=== PATIENT | male | born 1985 | race Caucasian/White ===

== ENCOUNTER 2017-12-03 13:17 | Emergency (ER) | payer OTHER ==
[2017-12-03 13:25] VITALS: BP 141/91
[2017-12-03] MEDS ORDERED: LORazepam 0.5 MG TABLET PO STA (13:37)
[2017-12-03 13:41] LABS: BASOPHILS % (AUTO) 0.8 %; EOSINOPHILS # (AUTO) 0.1 10^3/uL (0.0-0.7); EOSINOPHILS % (AUTO) 2.7 %; HGB - HEMOGLOBIN 15.8 g/dL (14.0-18.0); LYMPHOCYTES # (AUTO) 1.3 10^3/uL (1.5-3.5); LYMPHOCYTES % (AUTO) 24.5 %; MEAN CORPUSCULAR HEMOGLOBIN 30.6 pg (27.0-31.0); MEAN CORPUSCULAR VOLUME 87.3 fL (80.0-94.0); MEAN PLATELET VOLUME 7.3 fL (7.4-11.4); MONOCYTES # (AUTO) 0.5 10^3/uL (0.0-1.0); MONOCYTES % (AUTO) 9.8 %; NEUTROPHILS # (AUTO) 3.4 10^3/uL (1.5-6.6); NEUTROPHILS % (AUTO) 62.2 %; PLT - PLATELET COUNT 208 10^3/uL (130-450); RED BLOOD COUNT 5.16 10^6/uL (4.70-6.10); RED CELL DISTRIBUTION WIDTH 12.7 % (12.0-15.0); WHITE BLOOD COUNT 5.5 x10^3/uL (4.8-10.8)
--- NOTE | 2017-12-03 13:41 | ED Physician Documentation ---
PD HPI MHE - Stated complaint Stated Complaint: MHE - Chief complaint Chief Complaint: MHE - History obtained from History obtained from: Patient, Family - History of Present Illness Primary symptom: Suicidal ideation, Anxiety Pain level max: 0 Pain level now: 0 Contributing factors: Work (stress) Recently seen: Not recently seen - Additional information Additional information: Patient is a 32-year-old male who states he has been diagnosed with "cognitive disassociative disorder". Was seen a psychiatrist, but is not currently seen 1. Does have a PCM through the [facility]. Is currently on Prozac and had his dose increased approximately 2 months ago. Over the past several hours has been feeling increasingly anxious and like he is having a panic attack. States he has been having suicidal thoughts, but does not currently have a plan. Has never attempted suicide in the past but has self-harmed by cutting his wrists. Review of Systems Ten Systems: 10 systems reviewed and negative Constitutional: denies: Fever, Chills Ears: denies: Ear pain Nose: denies: Rhinorrhea / runny nose, Congestion Throat: denies: Sore throat Cardiac: denies: Chest pain / pressure, Palpitations Respiratory: denies: Dyspnea, Cough, Wheezing GI: denies: Nausea, Vomiting, Diarrhea Skin: denies: Rash Musculoskeletal: denies: Neck pain, Back pain Psychiatric: denies: Homicidal, Hallucinations, Insomnia PD PAST MEDICAL HISTORY - Past Medical History Past Medical History: Yes Psych: Depression, Anxiety - Past Surgical History Past Surgical History: No - Present Medications Home Medications: Ambulatory Orders Medication Instructions Recorded Confirmed FLUoxetine [PROzac] 30 mg ORAL DAILY 12/10/15 12/10/15 LORazepam [Ativan] 0.5 mg PO Q6H PRN #7 tablet 12/03/17 - Allergies Allergies/Adverse Reactions: Allergies Allergy/AdvReac Type Severity Reaction Status Date / Time No Known Drug Allergies Allergy Verified 12/03/17 13:26 - Living Situation Living Situation: reports: With family Living Arrangement: reports: At home - Social History Does the pt smoke?: No Smoking Status: Never smoker Does the pt drink ETOH?: Yes Does the pt have substance abuse?: No - Immunizations Immunizations are current?: Yes PD ED PE NORMAL - Vitals Vital signs reviewed: Yes - General General: Alert and oriented X 3 - HEENT HEENT: Moist mucous membranes - Neck Neck: Supple, no meningeal sign - Cardiac Cardiac: RRR - Respiratory Respiratory: No respiratory distress, Clear bilaterally - Abdomen Abdomen: Soft, Non tender, Non distended - Back Back: No spinal TTP - Derm Derm: Warm and dry, No rash - Extremities Extremities: No edema - Neuro Neuro: Alert and oriented X 3 - Psych Psych: Normal mood, Normal affect Results - Vitals Vitals: Vital Signs - 24 hr 12/03/17 13:21 Temperature 36.8 C Heart Rate 76 Respiratory 16 Rate Blood Pressure 141/91 H O2 Saturation 97 Oxygen O2 Source Room air - Labs Labs: Laboratory Tests 12/03/17 12/03/17 12/03/17 13:30 13:35 13:35 WBC 5.5 RBC 5.16 Hgb 15.8 Hct 45.0 MCV 87.3 MCH 30.6 MCHC 35.0 RDW 12.7 Plt Count 208 MPV 7.3 L Neut # (Auto) 3.4 Lymph # (Auto) 1.3 L Lucas # (Auto) 0.5 Eos # (Auto) 0.1 Baso # (Auto) 0.0 Absolute Nucleated RBC 0.00 Nucleated RBC % 0.1 Sodium 139 Potassium 4.2 Chloride 106 Carbon Dioxide 24 Anion Gap 9.0 BUN 14 Creatinine 1.0 Estimated GFR (MDRD) 86 L Glucose 102 H Calcium 9.9 Total Bilirubin 0.8 AST 35 ALT 56 Alkaline Phosphatase 77 Total Protein 8.3 H Albumin 4.9 Globulin 3.4 Albumin/Globulin Ratio 1.4 Lipase 30 Urine Color YELLOW Urine Clarity CLEAR Urine pH 8.0 H Ur Specific Edson 1.020 Urine Protein TRACE Urine Glucose (UA) NEGATIVE Urine Ketones NEGATIVE Urine Occult Blood NEGATIVE Urine Nitrite NEGATIVE Urine Bilirubin NEGATIVE Urine Urobilinogen 0.2 (NORMAL) Ur Leukocyte Esterase NEGATIVE Ur Microscopic Review NOT INDICATED Urine Culture Comments NOT INDICATED Salicylates < 6.0 Urine Opiates Screen NEGATIVE Ur Oxycodone Screen NEGATIVE Urine Methadone Screen NEGATIVE Ur Propoxyphene Screen NEGATIVE Acetaminophen < 10 L Ur Barbiturates Screen NEGATIVE Ur Tricyclics Screen NEGATIVE Ur Phencyclidine Scrn NEGATIVE Ur Amphetamine Screen NEGATIVE U Methamphetamines Scrn NEGATIVE U Benzodiazepines Scrn NEGATIVE Urine Cocaine Screen NEGATIVE U Cannabinoids Screen NEGATIVE Ethyl Alcohol < 5.0 PD MEDICAL DECISION MAKING - ED course Complexity details: reviewed old records, reviewed results, re-evaluated patient , considered differential, d/w patient, d/w family, d/w leasing consultant (CHRISTINA) ED course: Patient is a 32-year-old male who presents with anxiety and vague suicidal ideation today. No specific plan. Was given Ativan and feels much improved. He is able to contract for safety. I did consult social work who evaluated the patient and agrees that he is safe for home at this time. Patient's is comfortable taking him home and they will follow-up closely with his doctor. Patient and family counseled regarding signs and symptoms for which I believe and urgent re-evaluation would be necessary. Patient with good understanding of and agreement to plan and is comfortable going home at this time This document was made in part using voice recognition software. While efforts are made to proofread this document, sound alike and grammatical errors may occur. - Sepsis Event Vital Signs: Vital Signs - 24 hr 12/03/17 13:21 Temperature 36.8 C Heart Rate 76 Respiratory 16 Rate Blood Pressure 141/91 H O2 Saturation 97 Oxygen O2 Source Room air Departure - Departure Disposition: 01 Home, Self Care Clinical Impression: Anxiety Depression Qualifiers: Depression Type: unspecified Qualified Code(s): F32.9 - Major depressive disorder, single episode, unspecified Condition: Good Instructions: ED Depression Follow-Up: Marvel Gonzalez DO [Primary Care Provider] - Within 1 week Prescriptions: LORazepam [Ativan] 0.5 mg PO Q6H PRN #7 tablet PRN Reason: Anxiety Comments: Use the Ativan as needed for anxiety. Return if you worsen. Do not drive or operate heavy machinery while taking the Ativan. Follow-up with your doctor this week for further evaluation and care. Crisis Line and is available to talk to someone [email or web address] is also available to chat with someone online if you prefer. There are also many resources on this website and apps for your phone to help with your mental health You can also text the word START to [phone] to chat with someome via text. Discharge Date/Time: 12/03/17 15:20
[2017-12-03 13:48] LABS: BILIRUBIN,URINE NEGATIVE (NEGATIVE); GLUCOSE, URINE (UA) NEGATIVE (NEGATIVE); KETONES,URINE (UA) NEGATIVE (NEGATIVE); LEUKOCYTE ESTERASE, URINE NEGATIVE (NEGATIVE); MUDS CUTOFF CONCENTRATIONS CUTOFF CONC BELOW:; NITRITE,URINE NEGATIVE (NEGATIVE); OCCULT BLOOD,URINE NEGATIVE (NEGATIVE); PROTEIN,URINE TRACE mg/dL (NEGATIVE); UROBILINOGEN,URINE 0.2 (NORMAL) E.U./dL (NORMAL)
[2017-12-03 13:49] LABS: CLARITY,URINE CLEAR (CLEAR)
[2017-12-03 13:57] LABS: AMPHETAMINE SCREEN,URINE NEGATIVE (NEGATIVE); BENZODIAZEPINES SCREEN, URINE NEGATIVE (NEGATIVE); COCAINE SCREEN URINE NEGATIVE (NEGATIVE); METHADONE SCREEN, URINE NEGATIVE (NEGATIVE); METHAMPHETAMINES SCREEN, URINE NEGATIVE (NEGATIVE); OPIATE SCREEN, URINE NEGATIVE (NEGATIVE); OXYCODONE SCREEN, URINE NEGATIVE (NEGATIVE); PROPOXYPHENE SCREEN, URINE NEGATIVE (NEGATIVE); TRICYCLIC ANTIDEPRESSANT,URINE NEGATIVE (NEGATIVE)
[2017-12-03 13:57] LABS: ALBUMIN 4.9 g/dL (3.2-5.5); ALBUMIN/GLOBULIN RATIO 1.4 (1.0-2.2); ALKALINE PHOSPHATASE 77 IU/L (42-121); ALT ALANINE AMINOTRANSFERASE 56 IU/L (10-60); AST ASPARTATE AMINOTRANSFERASE 35 IU/L (10-42); BILIRUBIN,TOTAL 0.8 mg/dL (0.2-1.0); BUN - BLOOD UREA NITROGEN 14 mg/dL (6-20); CALCIUM 9.9 mg/dL (8.5-10.3); CARBON DIOXIDE - CO2 24 mmol/L (21-32); CHLORIDE 106 mmol/L (101-111); GFR - MDRD 86 (>89); GLUCOSE 102 mg/dL (70-100); LIPASE 30 U/L (22-51); SALICYLATE < 6.0 mg/dL; SODIUM 139 mmol/L (135-145); TOTAL PROTEIN 8.3 g/dL (6.7-8.2)
[2017-12-03 14:01] LABS: ACETAMINOPHEN < 10 ug/mL (10-30)
== END 2017-12-03 15:20 | disposition home or self-care (01) ==
LOC: ED 13:17
DX: F41.9 Anxiety disorder, unspecified (principal); F32.9 Major depressive disorder, single episode, unspecified
CPT/HCPCS: 36415; 80053; 80306; 80307; 80320; 80329; 81003; 83690; 85025; 99283; A9270; 81001; 87086

== ENCOUNTER 2018-04-13 12:07 | Emergency (ER) | payer OTHER ==
[2018-04-13 12:40] LABS: BASOPHILS # (AUTO) 0.1 10^3/uL (0.0-0.1); BASOPHILS % (AUTO) 1.3 %; EOSINOPHILS # (AUTO) 0.4 10^3/uL (0.0-0.7); EOSINOPHILS % (AUTO) 6.9 %; HGB - HEMOGLOBIN 14.9 g/dL (14.0-18.0); LYMPHOCYTES # (AUTO) 1.4 10^3/uL (1.5-3.5); LYMPHOCYTES % (AUTO) 25.4 %; MEAN CORPUSCULAR HEMOGLOBIN 30.7 pg (27.0-31.0); MEAN CORPUSCULAR VOLUME 87.6 fL (80.0-94.0); MEAN PLATELET VOLUME 7.2 fL (7.4-11.4); MONOCYTES # (AUTO) 0.6 10^3/uL (0.0-1.0); MONOCYTES % (AUTO) 10.1 %; NEUTROPHILS # (AUTO) 3.2 10^3/uL (1.5-6.6); NEUTROPHILS % (AUTO) 56.3 %; PLT - PLATELET COUNT 194 10^3/uL (130-450); RED BLOOD COUNT 4.86 10^6/uL (4.70-6.10); RED CELL DISTRIBUTION WIDTH 12.8 % (12.0-15.0); WHITE BLOOD COUNT 5.7 x10^3/uL (4.8-10.8)
[2018-04-13 12:53] LABS: ALBUMIN 4.7 g/dL (3.2-5.5); ALBUMIN/GLOBULIN RATIO 1.6 (1.0-2.2); BILIRUBIN,TOTAL 0.9 mg/dL (0.2-1.0); CALCIUM 9.5 mg/dL (8.5-10.3); CREATININE 1.1 mg/dL (0.6-1.2); TOTAL PROTEIN 7.6 g/dL (6.7-8.2)
[2018-04-13] MEDS ORDERED: MAG HYDROX/AL HYDROX/SIMETH 30 ML UDC PO STA (13:17)
[2018-04-13] MEDS ORDERED: LIDOCAINE VISCOUS 2% 15 ML UDC MM STA (13:17)
--- NOTE | 2018-04-13 13:19 | ED Physician Documentation ---
PD HPI CHEST PAIN - Stated complaint Stated Complaint: CHEST PX - Chief complaint Chief Complaint: Cardiac - History obtained from History obtained from: Patient - History of Present Illness Timing - onset: How many hours ago (3) Timing - onset during: Other (While sitting at his computer.) Timing - details: Waxing and waning Pain level max: 7 Quality: Dull Location: Substernal Similar symptoms before: No diagnosis (Similar symptoms intermittently for the past month.) - Additional information Additional information: The patient is a 32-year-old male who presents with substernal chest pain that started about 3 hours prior to arrival while sitting at his computer at work. He denies any associated nausea, vomiting, or diaphoresis. He reports mild exertional shortness of breath. He denies cough or fever. The pain has been waxing and waning for the past 3 hours, and was rated at 7 out of 10 in severity at its worst. He reports a history of similar symptoms intermittently for the past month. Cardiac risk factors are negative for diabetes, hypertension, and hyperlipidemia. He quit smoking cigarettes about 12 years ago. Family history is negative for early cardiac disease on his mother's side; family history on his father's side is unknown. Review of Systems Constitutional: denies: Fever, Fatigue Ears: denies: Tinnitus/ringing Nose: denies: Congestion Throat: denies: Sore throat Cardiac: reports: Chest pain / pressure Respiratory: denies: Dyspnea, Cough GI: denies: Abdominal Pain, Nausea, Vomiting : denies: Dysuria Skin: denies: Rash Musculoskeletal: denies: Back pain, Extremity pain Neurologic: denies: Focal weakness, Numbness, Headache PD PAST MEDICAL HISTORY - Past Medical History Cardiovascular: None Respiratory: None Neuro: None Endocrine/Autoimmune: None GI: None Psych: Depression, Anxiety - Past Surgical History Past Surgical History: No - Present Medications Home Medications: Ambulatory Orders Medication Instructions Recorded Confirmed raNITIdine HCl [Ranitidine HCl] 150 mg PO BID #30 tablet 04/13/18 - Allergies Allergies/Adverse Reactions: Allergies Allergy/AdvReac Type Severity Reaction Status Date / Time No Known Drug Allergies Allergy Verified 04/13/18 12:16 - Social History Does the pt smoke?: No Smoking Status: Former smoker (Quit smoking about 12 years ago.) Does the pt drink ETOH?: Yes Does the pt have substance abuse?: No - Immunizations Immunizations are current?: Yes PD ED PE NORMAL - Vitals Vital signs reviewed: Yes (Borderline hypertension initially.) - General General: Alert and oriented X 3, Well developed/nourished - HEENT HEENT: Atraumatic, Pharynx benign - Neck Neck: No adenopathy, No JVD - Cardiac Cardiac: RRR, No murmur - Respiratory Respiratory: No respiratory distress, Clear bilaterally, Other (No chest wall tenderness.) - Abdomen Abdomen: Normal bowel sounds, Soft, Other (Mild epigastric tenderness to palpation, without rebound or guarding.) - Back Back: No CVA TTP - Derm Derm: No rash - Extremities Extremities: No edema, No calf tenderness / cord - Neuro Neuro: Alert and oriented X 3, No motor deficit, Normal speech Results - Vitals Vitals: Oxygen O2 Source Room air - EKG (time done) 12:11 Rate: Rate (enter#) (78) Rhythm: NSR [place]: Normal Intervals: Normal [place] QRS: Normal Ischemia: Non specific changes (T wave flattening in inferior leads III and aVF.) Computer interpretation: Agree with computer - Labs Labs: Laboratory Tests 04/13/18 04/13/18 04/13/18 12:34 12:34 12:34 WBC 5.7 RBC 4.86 Hgb 14.9 Hct 42.6 MCV 87.6 MCH 30.7 MCHC 35.0 RDW 12.8 Plt Count 194 MPV 7.2 L Neut # (Auto) 3.2 Lymph # (Auto) 1.4 L [place] # (Auto) 0.6 Eos # (Auto) 0.4 Baso # (Auto) 0.1 Absolute Nucleated RBC 0.00 Nucleated RBC % 0.1 D-Dimer Sodium 136 Potassium 3.9 Chloride 100 L Carbon Dioxide 27 Anion Gap 9.0 BUN 24 H Creatinine 1.1 Estimated GFR (MDRD) 77 L Glucose 101 H Calcium 9.5 Total Bilirubin 0.9 AST 58 H ALT 104 H Alkaline Phosphatase 79 Troponin I < 0.04 Total Protein 7.6 Albumin 4.7 Globulin 2.9 Albumin/Globulin Ratio 1.6 Lipase 33 04/13/18 12:34 WBC RBC Hgb Hct MCV MCH MCHC RDW Plt Count MPV Neut # (Auto) Lymph # (Auto) [place] # (Auto) Eos # (Auto) Baso # (Auto) Absolute Nucleated RBC Nucleated RBC % D-Dimer 238.9 Sodium Potassium Chloride Carbon Dioxide Anion Gap BUN Creatinine Estimated GFR (MDRD) Glucose Calcium Total Bilirubin AST ALT Alkaline Phosphatase Troponin I Total Protein Albumin Globulin Albumin/Globulin Ratio Lipase - Rads (name of study) CXR Radiology: Prelim report reviewed, EMP read contemporaneously, See rad report (normal 1-view chest radiography.) PD MEDICAL DECISION MAKING - ED course Complexity details: reviewed results, re-evaluated patient, considered differential, d/w patient ED course: The patient's presentation is most consistent with gastroesophageal reflux disease. I doubt cardiac etiology, and there is no evidence of pulmonary etiology. His electrocardiogram, chest x-ray, and troponin are normal. I doubt pulmonary embolus, with a d-dimer of 238. Treatment in the emergency department included administration of GI cocktail, which completely relieved his symptoms. He is being discharged with prescription for ranitidine. I discussed with the diagnosis, outpatient treatment and follow-up, as well as potentially worrisome signs or symptoms that should prompt reevaluation in the emergency department. Departure - Departure Disposition: 01 Home, Self Care Clinical Impression: Gastroesophageal reflux disease Qualifiers: Esophagitis presence: esophagitis presence not specified Qualified Code(s): K21.9 - Gastro-esophageal reflux disease without esophagitis Condition: Stable Instructions: ED GERD Follow-Up: [facility] [Provider Group] Prescriptions: raNITIdine HCl [Ranitidine HCl] 150 mg PO BID #30 tablet Comments: Minimize coffee, lobo, chocolate, and alcohol. Take ranitidine twice daily as prescribed. If you develop recurrent symptoms, drink liquid antacid, such as Maalox or Mylanta. Follow-up with your primary physician within 1-2 weeks. Call to schedule an appointment. Return to the emergency department if you develop increasing pain, shortness of breath, or otherwise worsening symptoms. Discharge Date/Time: 04/13/18 14:12
[2018-04-13 14:08] VITALS: BP 133/102
--- NOTE | 2018-04-13 14:13 | XRAY Report ---
Reason: chest pain Procedure Date: 04/13/2018 Accession Number: [id number] / [id number] Procedure: XR - Chest 1 View X-Ray CPT Code: 86671 FULL RESULT: EXAM: CHEST RADIOGRAPHY EXAM DATE: 04/13/2018 01:57 PM. CLINICAL HISTORY: Chest pain. COMPARISON: None. TECHNIQUE: 1 view. FINDINGS: Lungs/Pleura: No focal opacities evident. No pleural effusion. No pneumothorax. Mediastinum: Within exam limitations, the cardiomediastinal contour is normal. Other: ECG leads overlie the chest. IMPRESSION: No acute findings. [facility]
== END 2018-04-13 14:12 | disposition home or self-care (01) ==
LOC: ED 12:07
DX: K21.9 Gastro-esophageal reflux disease without esophagitis (principal); Z87.891 Personal history of nicotine dependence
CPT/HCPCS: 36415; 71045; 80053; 83690; 84484; 85025; 85379; 93005; 99283; A9270

== ENCOUNTER 2018-05-25 07:45 | Outpatient (CLI) | payer OTHER ==
--- NOTE | 2018-05-25 13:46 | MRI Report ---
Reason: PAIN IN LEFT ANKLE AND JOINTS OF LEFT FOOT Procedure Date: 05/25/2018 Accession Number: [id number] / [id number] Procedure: MRI - Ankle LT W/O CPT Code: FULL RESULT: EXAM: LEFT ANKLE/HINDFOOT MRI WITHOUT CONTRAST EXAM DATE: 05/25/2018 08:39 AM. CLINICAL HISTORY: Left ankle pain for 6 months. COMPARISON: None. TECHNIQUE: Multiplanar, multisequence T1-weighted and fluid-sensitive sequences of the ankle/hindfoot without contrast. Other: None. FINDINGS: Bones: No fractures or subluxations. No marrow edema. No bone lesions. Articular Cartilage: Unremarkable. Ligaments: The anterior and posterior tibiofibular, anterior and posterior talofibular, and calcaneofibular ligaments are intact. The deep and superficial deltoid and spring ligaments are intact. Anterior Tendons: The tibialis anterior, extensor hallucis longus, and extensor digitorum longus tendons are unremarkable. Medial Tendons: The tibialis posterior, flexor digitorum longus, and flexor hallucis longus tendons are unremarkable. Lateral Tendons: There is a longitudinal split type partial tear within the peroneus brevis tendon at, and distal to, the level of the lateral malleolus. Peroneus longus tendon is intact. Mild to moderate peroneus longus and brevis tenosynovitis. Achilles Tendon: The Achilles tendon is unremarkable. Musculature: No edema or fatty atrophy. Other: No effusions. The contents of the sinus tarsi and tarsal tunnel are unremarkable. No plantar fasciitis. The subcutaneous tissues are unremarkable. IMPRESSION: 1. Longitudinal split type partial tear within the peroneus brevis tendon at, and distal to, the level of the lateral malleolus. Mild to moderate peroneus longus and brevis tenosynovitis. [facility] MUSCULOSKELETAL RADIOLOGY SECTION
== END 2018-05-25 07:46 | disposition home or self-care (01) ==
LOC: DI 07:45
DX: S96.812A Strain of other specified muscles and tendons at ankle and foot level, left foot, initial encounter (principal); M65.872 Other synovitis and tenosynovitis, left ankle and foot

== ENCOUNTER 2018-07-27 07:34 | Day surgery (SDC) | payer OTHER ==
[2018-07-27] MEDS ORDERED: LACTATED RINGERS 1,000 ML IV ONE ×2 (07:56→13:05)
[2018-07-27] MEDS ORDERED: ceFAZolin 3 GM in SODIUM CHLORIDE 0.9% 100ML 100 ML IV SCH (08:00)
--- NOTE | 2018-07-27 08:54 | ANESTHESIA ---
Pre-Anesthesia VS, & Labs - Diagnosis Left peroneal tendon repair - Procedure Repair left peroneal tendon Vital Signs: Temp Pulse Resp BP Pulse Ox 36 C L 73 18 128/80 98 07/27/18 07:50 07/27/18 07:50 07/27/18 07:50 07/27/18 07:50 07/27/18 07:50 Height 5 ft 8 in Weight (kg) 128 kg Body Mass Index 38.4 - NPO >8 hours Home Medications and Allergies Home Medications: Ambulatory Orders Multivitamin [Daily Multiple Vitamin] 1 each PO 07/17/18 Active Medications Cefazolin Sodium 3 gm/ Sodium (Chloride) 100 mls @ 200 mls/hr IV ONCE JACKY Stop: 07/27/18 10:00 Multivitamin [Daily Multiple Vitamin] 1 each PO 07/17/18 Allergies/Adverse Reactions: Allergies Allergy/AdvReac Type Severity Reaction Status Date / Time No Known Drug Allergies Allergy Verified 07/17/18 15:02 Anes History & Medical History - Anesthetic History Anesthesia Complications: reports: No previous complications Family history of Anesthesia Complications: Denies Family history of Malignant Hyperthermia: Denies - Medical History Cardiovascular: reports: None Pulmonary: reports: Sleep apnea, CPAP use Gastrointestinal: reports: None Urinary: reports: None Neuro: reports: None Musculoskeletal: reports: Other Endocrine/Autoimmune: reports: None Blood Disorders: reports: None Skin: reports: None Smoking Status: Former smoker (Quit smoking about 12 years ago.) Psychosocial: reports: No issues indicated Exam General: Alert, Cooperative Dental: WNL Mouth Openin Fingerbreadth Neck Mobility: Normal Mallampati classification: II Thyromental Distance: 4-6 cm Respiratory: Lungs clear Cardiovascular: Regular rate Neurological: Normal speech Mental/Cognitive Status: Alert/Oriented X3 Cognitive Status: Within normal limits Plan Anesthesia Type: General Consent for Procedure(s) Verified and Reviewed: Yes Code Status: Attempt Resuscitation ASA classification: 2-Mild systemic disease Is this case an emergency?: No
[2018-07-27] MEDS ORDERED: BUPIVACAINE 0.25% PF 10 ML VIAL ONE (09:45)
[2018-07-27] MEDS ORDERED: BUPIVACAINE 0.25% PF 30 ML VIAL SUBQ ONE (10:42)
[2018-07-27] MEDS ORDERED: PROPOFOL 200 MG/20 ML VIAL IVP ONE (11:40)
[2018-07-27] MEDS ORDERED: ACETAMINOPHEN 1,000 MG/100 ML 100 ML IV ONE (11:40)
[2018-07-27] MEDS ORDERED: LIDOCAINE-MPF 2% 5 ML VIAL IM ONE (11:40)
[2018-07-27] MEDS ORDERED: fentaNYL 100 MCG/2 ML VIAL IVP ONE (11:40)
[2018-07-27] MEDS ORDERED: ROCURONIUM 50 MG/5 ML VIAL IVP ONE (11:40)
[2018-07-27] MEDS ORDERED: METOPROLOL 5 MG/5 ML VIAL IVP ONE (11:40)
[2018-07-27] MEDS ORDERED: ONDANSETRON 4 MG/2 ML VIAL IVP ONE (11:40)
[2018-07-27] MEDS ORDERED: KETOROLAC 30 MG/ML VIAL IVP ONE (11:40)
[2018-07-27] MEDS ORDERED: DEXAMETHASONE 4 MG/ML VIAL IVP ONE (11:40)
[2018-07-27] MEDS ORDERED: MIDAZOLAM 2 MG/2 ML VIAL IVP ONE (11:40)
[2018-07-27] MEDS: HYDROmorphone 1 MG/ML CARPUJECT ONE ×2 (12:54→13:05)
--- NOTE | 2018-07-27 13:20 | OPERATIVE REPORT ---
Operative Report - Other Other Information/Narrative: Date of Surgery: 27 July 2018 Pre-Op Diagnosis: Left peroneal brevis tendon tear Procedure: Left peroneal brevis tendon debridement, tubularization, and tenodesis to peroneal longus tendon Postop Diagnosis: Same Primary Surgeon: Bandar Pack Secondary Surgeon: Andrey Hobbs Complications: None Tourniquet Time: 93 minutes EBL: 20 Implants: Fiber wire Postoperative Protocol: 0-2 weeks: Nonweightbearing and splint 2-6 weeks: Weightbearing as tolerated in boot at all times, gentle range of motion 6-12 weeks: Can transition to a normal shoe and begin strengthening exercises, no dynamic activities 12 weeks and beyond: Gradually increase activity Indication For Surgery: 32-year-old male with 8 months of insidious onset lateral ankle pain consistent with peroneal tendon tear. He denies any instability or having ever sprained the ankle. He has not responded to extensive conservative measures. He was indicated for surgery secondary to tears seen on MRI and symptoms consistent with this. The risks, benefits, and alternatives were discussed. Risks include pain, bleeding, infection, damage to nearby structures, numbness, lack of symptom relief, implant complications, nonunion, peroneal instability, peroneal tendon rupture, need for further surgery, DVT, PE, stroke, and . Written consent was obtained. Procedure in Detail: The patient was met in the pre-operative hold area on the day of the procedure. The operative extremity was signed and questions were answered. The patient was brought to the operating room and a general anesthetic was administered. Lateral position was used. An axillary roll was placed. All bony prominences were well-padded. Standard prepping and draping was performed. A time out confirmed patient identification, laterality, procedure, allergies, antibiotics, and images. An Esmarch was used to exsanguinate the limb and the tourniquet was elevated to 250 mmHg. A curvilinear incision was made overlying the course of the peroneal tendons at the level of the distal fibula. Hemostasis was obtained with electrocautery. Sharp dissection was carried down to the peroneal tendon sheath and full- thickness skin flaps were obtained. The superficial peroneal nerve and the sural nerve were looked for but not found within the wound. The peroneal tendon sheath was then sharply opened proximal to the superior peroneal retinaculum. Metzenbaum scissors were used to separate the tendons from the tendon sheath and the sheath was opened. The retinaculum was opened 1 mm off of its origin on the distal fibula. The tendons were then delivered from behind the fibula and inspected. The peroneal tendons showed 2 long tears in peroneal brevis tendon. The peroneal longus tendon had split them and was traveling between the 2. There was also extensive tenosynovitis, a low-lying muscle belly, and exuberant fat within the sheath. Tenosynovitis was removed from the sheath and excess fat and low lying muscle belly was also excised sharply. I then proceeded to sharply excise the unhealthy portions of the brevis tendon. Approximately 60% of the tendon was excised. The most healthy portion of the tendon distally was somewhat bulbous, but it was retained as it was the most healthy tissue available for a [id number] repair. I then tubularized the tendon with 2-0 FiberWire ensuring to bury the knots. I then performed a [id number] repair of brevis to longus proximal to the fibular tip with 4 horizontal mattresses using 2-0 FiberWire. I then repeated the [id number] repair distally with 3 horizontal mattresses using 2-0 FiberWire. I performed the distal repair with the foot in full inversion to ensure that the repair would not be too distal. The ankle was taken through a full range of motion and the repair was stable and did not limit motion. The wound was then irrigated copiously and a layered closure was performed. 2-0 FiberWire was used in the retinaculum. Running 0 Vicryl was used in the tendon sheath. 0 Vicryl was placed in the deep tissues. 2-0 Vicryl was placed in the dermis. Running nylon was placed in the skin. 20 cc of quarter percent Marcaine plain were instilled about the wound. A sterile dressing was applied and a splint was placed with the foot in eversion. The patient was awakened and transferred to the recovery room.
[2018-07-27] MEDS ORDERED: ONDANSETRON 4 MG/2 ML VIAL IVP PRN (13:34)
[2018-07-27] MEDS ORDERED: oxyCODONE 5 MG TABLET PO PRN (13:34)
[2018-07-27] MEDS ORDERED: oxyCODONE 5 MG TABLET ONE (13:47)
[2018-07-27 14:20] VITALS: BP 131/93
== END 2018-07-27 07:35 | disposition home or self-care (01) ==
LOC: SDS 07:34
PROVIDERS: ATTEND Orthopaedic Surgery
PROC: 0LQP0ZZ Repair Left Lower Leg Tendon, Open Approach (ICD-10-PCS; principal; 2018-07-27 08:45)
DX: S86.312A Strain of muscle(s) and tendon(s) of peroneal muscle group at lower leg level, left leg, initial encounter (principal); M65.862 Other synovitis and tenosynovitis, left lower leg; G47.33 Obstructive sleep apnea (adult) (pediatric); Z87.891 Personal history of nicotine dependence; E66.01 Morbid (severe) obesity due to excess calories; Z68.38 Body mass index [BMI] 38.0-38.9, adult
CPT/HCPCS: 27658; A9270; J0131; J1170; J7120